=== PATIENT | female | born 1970 | race Caucasian/White ===

== ENCOUNTER 2018-08-18 02:06 | Emergency (ER) | payer MEDICAID ==
[~2018-08-18] VITALS: Ht 149.9 cm; Wt 71.2 kg
[~2018-08-18 02:06] MED LIST: FAMO-96 PO; MAG355OR14 PO; OMEP40CA6 PO
[2018-08-18 02:46] VITALS: BP 195/56; PULSE 101; RESP 22; Ht 149.9 cm; Wt 71.2 kg
[2018-08-18] MEDS ORDERED: predniSONE 20 MG TAB PO ONE (03:00)
[2018-08-18] MEDS ORDERED: FAMOTIDINE 20 MG TAB PO ONE (03:00)
[2018-08-18] MEDS ORDERED: BEN50 PO (03:22)
[2018-08-18] MEDS ORDERED: ELIM TOP (03:22)
[2018-08-18] MEDS ORDERED: PRED20TA PO (03:22)
--- NOTE | 2018-08-18 03:41 | ERD ---
ER Documentation Chief Complaint Chief Complaint SKIN RASH, ITCHING AND EYE REDNESS X 1 WEEK HPI 48-year-old female presents with complaint of of rash and itching for the past week. In addition she states that she has been having itching in her eyes with clear watery discharge. These of both of her children have had the same symptoms for the same amount of time. She states that they share a bed. She thinks that they have bugs in the bed that are biting them. Denies any treatments. Denies any fevers, cough, allergies, wheezing, respiratory distress, stridor, cyanosis, nausea, vomiting. Denies medical problems. Denies allergies. ROS All systems reviewed and are negative except as per history of present illness. Medications Home Meds Active Scripts Prednisone* (Prednisone*) 20 Mg Tab, 60 MG PO DAILY for allergic reaction for 4 Days, TAB Prov:TOM HAGER 08/18/18 Permethrin* (Elimite*) 5% Cr, 1 APPLIC TOP ONCE for scabies, #1 TUB Prov:TOM HAGER 08/18/18 Diphenhydramine Hcl* (Benadryl*) 50 Mg Cap, 50 MG PO Q6H PRN for ITCHING/RASH, #30 CAP Prov:TOM HAGER 08/18/18 Omeprazole* (Omeprazole*) 40 Mg Capsule.dr, 40 MG PO DAILY, #14 CAP Prov:KYE HAYWARD MD 03/08/16 Famotidine* (Pepcid*) 20 Mg Tablet, 20 MG PO BID for 30 Days, TAB Prov:KYE HAYWARD MD 03/08/16 Mag Hydrox/Al Hydrox/Simeth (Maalox Advanced Suspension) 355 Ml Oral.susp, 2 TSP PO TID for PAIN, #24 OZ Prov:KYE HAYWARD MD 03/08/16 Allergies Allergies: Coded Allergies: No Known Allergy (Verified , 03/08/16) PMhx/Soc History of Surgery: Yes ( X 2) Anesthesia Reaction: No Hx Neurological Disorder: No Hx Respiratory Disorders: No Hx Cardiac Disorders: Yes (htn) Hx Psychiatric Problems: No Hx Miscellaneous Medical Probl: Yes (dm, ANXIETY) Hx Alcohol Use: No Hx Substance Use: No Hx Tobacco Use: No Smoking Status: Never smoker FmHx Family History: No diabetes, No coronary disease, No other Physical Exam Vitals Vital Signs Date Temp Pulse Resp B/P (MAP) Pulse Ox O2 O2 Flow FiO2 Time Delivery Rate 08/18/18 98.9 101 22 195/56 98 02:46 (102) Physical Exam Const: No acute distress Head: Atraumatic Eyes: Normal Conjunctiva ENT: Normal External Ears, Nose and Mouth. Airway is patent and clear. There is no angioedema or tongue edema. Neck: Full range of motion. No meningismus. Resp: Clear to auscultation bilaterally Cardio: Regular rate and rhythm, no murmurs Abd: Soft, non tender, non distended. Normal bowel sounds Skin: Erythematous papules located over the legs stomach and back bilaterally. There is no discharge or signs of infection. Back: No midline or flank tenderness Ext: No cyanosis, or edema Neur: Awake and alert Psych: Normal Mood and Affect Results 24 hrs Current Medications Medications Dose Sig/Vilma Start Time Status Last (Trade) Ordered Route PRN Stop Time Admin Dose Reason Admin Prednisone 60 mg ONCE ONCE 08/18/18 DC 08/18/18 (Prednisone) PO 03:00 02:52 08/18/18 03:01 Famotidine 40 mg ONCE ONCE 08/18/18 DC 08/18/18 (Pepcid) PO 03:00 02:52 08/18/18 03:01 Procedures/MDM Patient's presentation consistent with scabies or possible lice. Patient was given prednisone in the ER. Patient was not given Benadryl because patient is driving home. I told patient she should have someone pick her up so I could give her Benadryl but she refused and said she would just take a prescription for it. Patient discharged with Rx for prednisone, permethrin, Benadryl. Patient advised to place permethrin on now and then again in 14 days. I have low suspicion for anaphylaxis, viral syndrome, or any other emergent condition. Patient discharged with strict ER precautions. Patient advised to follow up with PMD. All questions answered at discharge. Departure Diagnosis: Primary Impression: Rash Condition: Stable Patient Instructions: Scabies, Permethrin Topical cream Referrals: COMMUNITY CLINICS YOU HAVE RECEIVED A MEDICAL SCREENING EXAM AND THE RESULTS INDICATE THAT YOU DO NOT HAVE A CONDITION THAT REQUIRES URGENT TREATMENT IN THE EMERGENCY DEPARTMENT. FURTHER EVALUATION AND TREATMENT OF YOUR CONDITION CAN WAIT UNTIL YOU ARE SEEN IN YOUR DOCTORS OFFICE WITHIN THE NEXT 1-2 DAYS. IT IS YOUR RESPONSIBILITY TO MAKE AN APPOINTMENT FOR FOLOW-UP CARE. IF YOU HAVE A PRIMARY DOCTOR --you should call your primary doctor and schedule an appointment IF YOU DO NOT HAVE A PRIMARY DOCTOR YOU CAN CALL OUR PHYSICIAN REFERRAL HOTLINE AT IF YOU CAN NOT AFFORD TO SEE A PHYSICIAN YOU CAN CHOSE FROM THE FOLLOWING [facility] [address] [facility] [address] [facility] [address] [facility] [address] [facility] [address] [facility] [facility]. [address] Additional Instructions: FOLLOW UP WITH YOUR PRIMARY CARE PHYSICIAN TOMORROW.Return to this facility if you are not improving as expected. TOM HAGER Aug 18, 2018 03:41
== END 2018-08-18 03:56 | disposition home or self-care (01) ==
LOC: FTE 02:06
DX: R21 Rash and other nonspecific skin eruption (principal); E11.9 Type 2 diabetes mellitus without complications; I10 Essential (primary) hypertension
CPT/HCPCS: J7512; Z7502; Z7610; 99283